=== PATIENT | female | born 1985 | race Caucasian/White ===

== ENCOUNTER 2016-07-22 15:31 | Emergency (ER) | payer SELFPAY ==
[~2016-07-22] VITALS: Ht 162.6 cm; Wt 86.2 kg
[~2016-07-22 15:31] MED LIST: CITA40TA12 PO; HYDR-971 PO; ONDA4TAB10 PO
--- NOTE | 2016-07-22 16:02 | RAD ---
Indication injury, pain. AP oblique and lateral views of the right hand were obtained. No prior imaging of the hand is available. There is deformity involving the mid shaft of the fifth metacarpal most consistent with an old healed fracture. An acute bony finding is not apparent. There is some soft tissue swelling over the ulnar side of the hand. IMPRESSION: No acute bony finding Deformity, having a chronic appearance, associated with the fifth metacarpal
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
[2016-07-22] MEDS ORDERED: HYDR-971 PO (16:23)
[2016-07-22 16:40] VITALS: BP 130/76
== END 2016-07-22 16:40 | disposition home or self-care (01) ==
LOC: ER 15:31
DX: S60.221A Contusion of right hand, initial encounter (principal); I10 Essential (primary) hypertension; F17.210 Nicotine dependence, cigarettes, uncomplicated; F12.10 Cannabis abuse, uncomplicated; F15.10 Other stimulant abuse, uncomplicated; Z88.6 Allergy status to analgesic agent; W22.8XXA Striking against or struck by other objects, initial encounter; Y93.89 Activity, other specified; Y99.8 Other external cause status; Y92.89 Other specified places as the place of occurrence of the external cause
CPT/HCPCS: 73130; 99284

== ENCOUNTER 2016-08-13 20:07 | Emergency (ER) | payer SELFPAY ==
[~2016-08-13] VITALS: Ht 162.6 cm; Wt 90.2 kg
[2016-08-13] MEDS ORDERED: QUET200T4 PO (20:30)
[2016-08-13] MEDS ORDERED: HYDR25TA9 PO (20:30)
[2016-08-13] MEDS ORDERED: PRAZ1CAP2 PO (20:30)
[2016-08-13] MEDS ORDERED: LISI10TA2 PO (20:30)
[2016-08-13] MEDS ORDERED: BUSP15TA PO (20:31)
[2016-08-13] MEDS ORDERED: MEDR150D3 IM (20:31)
[2016-08-13] MEDS ORDERED: IBUPROFEN 600 MG TABLET. PO ONE ×2 (20:46→21:00)
[2016-08-13] MEDS ORDERED: IBUP600T16 PO (21:10)
[2016-08-13] MEDS ORDERED: HYDR-2678 PO (21:10)
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
[2016-08-13 21:20] VITALS: BP 124/81
[2016-08-13] MEDS ORDERED: ACETAMINOPHEN/CODEINE 300/30MG 4TABLET STARTPACK. PO ONE (21:30)
--- NOTE | 2016-08-14 09:12 | RAD ---
Examination: 3 views of the right hand History: History of hand trauma Comparison: None available Findings: The alignment of the metacarpophalangeal joints, interphalangeal joint grossly appears unremarkable. Bony irregularity identified in the midshaft of the fifth metacarpal likely old injury. There is mild soft tissue swelling identified in the dorsum of the hand likely secondary to soft tissue injury. Impression: 1. No obvious acute fracture identified. Probable old fracture of the fifth metacarpal. 2. Mild soft tissue swelling identified in the dorsum of the hand likely secondary to soft tissue injury.
== END 2016-08-13 21:20 | disposition home or self-care (01) ==
LOC: ER 20:07
DX: S60.221A Contusion of right hand, initial encounter (principal); F17.210 Nicotine dependence, cigarettes, uncomplicated; I10 Essential (primary) hypertension; F12.10 Cannabis abuse, uncomplicated; Z88.6 Allergy status to analgesic agent; W20.8XXA Other cause of strike by thrown, projected or falling object, initial encounter; Y93.89 Activity, other specified; Y92.89 Other specified places as the place of occurrence of the external cause; Y99.8 Other external cause status
CPT/HCPCS: 73130; 99284

== ENCOUNTER 2016-08-26 13:03 | Emergency (ER) | payer SELFPAY ==
[~2016-08-26 13:03] MED LIST changes: +BUSP15TA PO; +HYDR-2678 PO; +HYDR25TA9 PO; +IBUP600T16 PO; +LISI10TA2 PO; +MEDR150D3 IM; +PRAZ1CAP2 PO; +QUET200T4 PO
[2016-08-26 13:49] LABS: AMPHETAMINE/METHAMPHETAMINE NEG (NEG); BARBITURATES NEG (NEG); BENZODIAZEPINES NEG (NEG); CANNABINOIDS POS (NEG); COCAINE NEG (NEG); METHADONE NEG (NEG); OPIATES NEG (NEG); PHENCYCLIDINE NEG (NEG)
[2016-08-26 13:58] LABS: BILIRUBIN,URINE NEG (NEG); CLARITY,URINE HAZY; COLOR,URINE AMBER; GLUCOSE,URINE NEG (NEG); NITRITE,URINE NEG (NEG); RBC,URINE 0 /HPF (0-2); UROBILINOGEN,URINE 0.2 mg/dL (0.2 mg/dL)
[2016-08-26 13:59] LABS: AMORPHOUS SEDIMENT,UR PRESENT /HPF; BACTERIA,URINE 0 /HPF (0-FEW); SQUAMOUS EPITHELIAL CELL,UR OCC /LPF; WBC,URINE 0 /HPF (0-4)
[2016-08-26 14:00] LABS: U PREG PATIENT NEGATIVE (NEG)
[2016-08-26] MEDS ORDERED: MORPHINE SULFATE 4 MG/ML DISP.SYRIN. IV/SQ PRN (14:15)
--- NOTE | 2016-08-26 14:17 | PHYS DOC ---
General Chief Complaint: FLANK PAIN Stated Complaint: BACK/RIB PAIN Time Seen by MD: 13:18 Source: patient Exam Limitations: no limitations Problems: History of Present Illness Initial Comments Pt is 31/F to ED c/o right flank pain. Pt states for past few days she's had left flank pain radiating anteriorly. No specific abdominal pain, no relation to PO, no n/v/d appetite remains intact. No trauma, sx described as crampy/dull, moderate, worse with certain movements better with rest. No travel/bad food, no other complaints. Timing/Duration: constant (few days) Severity: moderate Modifying Factors: worse with movement, improves with rest Associated Symptoms: other Allergies: Coded Allergies: tramadol (Verified Allergy, Severe, 08/13/16) "I GOT REALLY IRRITATED AND WENT PSYCHO." Past Medical History Medical History: hypertension, other (anxiety, bipolar, depression, HTN, seizure) Surgical History: noncontributory Social History Smoker: cigarettes Alcohol: occasionally Drugs: none Review of Systems Constitutional: denies chills, denies fever, denies malaise Respiratory: denies cough, denies shortness of breath Cardiovascular: denies chest pain, denies palpitations, denies syncope Gastrointestinal: abdominal pain, denies constipation, denies diarrhea, nausea , denies vomiting Genitourinary: denies dysuria, denies frequency, denies hematuria Musculoskeletal: see HPI, denies joint swelling, muscle pain, muscle stiffness , denies neck pain Psychiatric/Neurological: denies headache, denies numbness, denies paresthesia , denies weakness Physical Exam General Appearance: WD/WN, mild distress Eyes: bilateral eye normal inspection, bilateral eye PERRL, bilateral eye EOMI Ear, Nose, Throat: hearing grossly normal, normal ENT inspection, normal pharynx Neck: non-tender, supple Respiratory: normal breath sounds, no respiratory distress Cardiovascular: normal peripheral pulses, regular rate, rhythm Gastrointestinal: non tender, soft, other (equivocal lee, neg mcburney no r/ g/mass, BS nl) Back: no CVA tenderness, no vertebral tenderness Extremities: non-tender, normal inspection Neurologic/Psychiatric: mail courier II-XII nml as tested, no motor/sensory deficits, alert, normal mood/affect, oriented x 3, other (dtrs/strength/sensory equal/ intact b/l LE, neg SLR b/l) Skin: normal color, warm/dry Orders, Labs, Meds Labs/urine reviewed, unremarkable. UDS +cannabinoids Pt rechecked, feeling better with meds. She expressed agreement/understanding with treatment plan. Departure Time of Disposition: 14:56 Disposition: 01 HOME, SELF-CARE Diagnosis: low back strain, marijuana abuse Condition: GOOD Patient Instructions: Low Back Strain with Rehab-SportsMed, Marijuana Abuse- Brief Additional Instructions: Labs and urine were nonspecific, back pain complaints appear to be musculoskeletal in nature (muscle strain). Discontinue substance abuse. Activity as tolerated. Heating pad to affected area 20 minutes, 4-5 times daily followed by gentle stretching. Rx: tylenol w/codeine #10, skelaxin, naprosyn Take meds with food. Follow up with your doctor Tuesday for recheck. Return to ED with new or changing symptoms. JOSESITO CROOK DO August 26, 2016 14:17
[2016-08-26 14:23] LABS: BASO # 0.1 x10^3/uL (0.0-0.2); BASO % 1 % (0-3); EOS # 0.2 x10^3/uL (0.0-0.7); EOS % 2 % (0-3); HEMATOCRIT 40.1 % (36.0-47.0); HEMOGLOBIN 13.6 g/dL (12.0-15.5); LYMPH # 2.6 x10^3/uL (1.0-4.8); LYMPH % 29 % (24-48); MEAN CORPUSCULAR HEMOGLOBIN 29 pg (25-35); MEAN CORPUSCULAR HGB CONC 34 g/dL (31-37); MEAN CORPUSCULAR VOLUME 87 fL (79-100); MONO # 0.5 x10^3/uL (0.0-1.1); MONO % 5 % (0-9); NEUT # 5.8 x10^3uL (1.8-7.7); NEUT % 63 % (31-73); PLATELET COUNT 283 x10^3/uL (140-400); RED BLOOD COUNT 4.64 x10^6/uL (3.50-5.40); WHITE BLOOD COUNT 9.2 x10^3/uL (4.0-11.0)
[2016-08-26] MEDS ORDERED: IV NORMAL SALINE 1,000ML 1,000 ML IV SCH (14:30)
[2016-08-26] MEDS ORDERED: KETOROLAC 30 MG/ML VIAL. IV ONE (14:30)
[2016-08-26 14:39] LABS: ALBUMIN 3.8 g/dL (3.4-5.0); CALCIUM 9.1 mg/dL (8.5-10.1); CREATININE 0.8 mg/dL (0.6-1.0); GFR 83.7; POTASSIUM 3.6 mmol/L (3.5-5.1); TOTAL BILIRUBIN 0.6 mg/dL (0.2-1.0); TOTAL PROTEIN 7.6 g/dL (6.4-8.2)
[2016-08-26] MEDS ORDERED: ACET-704 PO (15:01)
[2016-08-26] MEDS ORDERED: META-21 PO (15:01)
[2016-08-26] MEDS ORDERED: NAPR500T PO (15:01)
[2016-08-26 15:15] VITALS: BP 124/77
== END 2016-08-26 15:15 | disposition home or self-care (01) ==
LOC: ER 13:03
DX: S39.012A Strain of muscle, fascia and tendon of lower back, initial encounter (principal); F12.10 Cannabis abuse, uncomplicated; F17.210 Nicotine dependence, cigarettes, uncomplicated; I10 Essential (primary) hypertension; F31.9 Bipolar disorder, unspecified; Z88.6 Allergy status to analgesic agent; X58.XXXA Exposure to other specified factors, initial encounter; Y93.89 Activity, other specified; Y99.8 Other external cause status; Y92.89 Other specified places as the place of occurrence of the external cause
CPT/HCPCS: 36415; 80053; 80305; 81001; 81025; 83690; 84703; 85027; 96361; 96374; 96375; 99284; J1885; J2270; G0481; J7030

== ENCOUNTER 2017-01-06 18:06 | Emergency (ER) | payer OTHER ==
[~2017-01-06] VITALS: Ht 162.6 cm; Wt 83.2 kg
[~2017-01-06 18:06] MED LIST changes: +ACET-704 PO; +META-21 PO; +NAPR500T PO
[2017-01-06 18:43] LABS: BASO % 0 % (0-3); EOS % 0 % (0-3); HEMATOCRIT 40.6 % (36.0-47.0); HEMOGLOBIN 13.7 g/dL (12.0-15.5); LYMPH # 1.5 x10^3/uL (1.0-4.8); LYMPH % 11 % (24-48); MEAN CORPUSCULAR HEMOGLOBIN 30 pg (25-35); MEAN CORPUSCULAR HGB CONC 34 g/dL (31-37); MEAN CORPUSCULAR VOLUME 89 fL (79-100); MONO # 0.4 x10^3/uL (0.0-1.1); MONO % 3 % (0-9); NEUT # 11.1 x10^3uL (1.8-7.7); NEUT % 85 % (31-73); PLATELET COUNT 254 x10^3/uL (140-400); RED BLOOD COUNT 4.55 x10^6/uL (3.50-5.40); RED CELL DISTRIBUTION WIDTH 14.3 % (11.5-14.5); WHITE BLOOD COUNT 13.1 x10^3/uL (4.0-11.0)
[2017-01-06 18:55] LABS: ACETAMIN < 2.0 mcg/mL (10-30); ETHANOL < 10 mg/dL (0-10); SALIC 5.5 mg/dL (2.8-20.0)
[2017-01-06 18:56] LABS: ALBUMIN 4.2 g/dL (3.4-5.0); CALCIUM 9.4 mg/dL (8.5-10.1); CREATININE 0.9 mg/dL (0.6-1.0); DIRECT BILIRUBIN 0.1 mg/dL (0.0-0.2); POTASSIUM 3.2 mmol/L (3.5-5.1); TOTAL BILIRUBIN 0.5 mg/dL (0.2-1.0); TOTAL PROTEIN 7.4 g/dL (6.4-8.2)
--- NOTE | 2017-01-06 18:58 | EKG ---
[address] [address] Test Date: 2017-01-06 Test Time: 18:34:31 Pat Name: VEE NOBLES Department: Room: Gender: F Manager Environmental Health [employer] Safety: : 1985 Requested By: JULIANE PAGAN Order Number: [id number] Reading MD: Measurements Intervals Jones Rate: 81 P: 38 HI: 148 QRS: 15 QRSD: 84 T: 8 QT: 390 QTc: 459 Interpretive Statements SINUS RHYTHM NORMAL ECG RI6.01 No previous ECG available for comparison
[2017-01-06 19:37] LABS: AMPHETAMINE/METHAMPHETAMINE POS (NEG); BARBITURATES NEG (NEG); BENZODIAZEPINES NEG (NEG); CANNABINOIDS NEG (NEG); COCAINE NEG (NEG); METHADONE NEG (NEG); OPIATES POS (NEG); PHENCYCLIDINE NEG (NEG)
[2017-01-06 23:10] VITALS: BP 125/65
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
== END 2017-01-06 23:57 | disposition home or self-care (01) ==
LOC: EEVIPCON 18:06 → ER 18:06
DX: T50.992A Poisoning by other drugs, medicaments and biological substances, intentional self-harm, initial encounter (principal); F32.9 Major depressive disorder, single episode, unspecified; F41.9 Anxiety disorder, unspecified; I10 Essential (primary) hypertension; F17.210 Nicotine dependence, cigarettes, uncomplicated; F12.10 Cannabis abuse, uncomplicated; Z88.6 Allergy status to analgesic agent; Z88.8 Allergy status to other drugs, medicaments and biological substances; Y92.89 Other specified places as the place of occurrence of the external cause
CPT/HCPCS: 36415; 80048; 80076; 80307; 81025; 85025; 85610; 85730; 93005; 99285; G0480; G0479

== ENCOUNTER 2017-03-14 09:41 | Emergency (ER) | payer OTHER ==
[~2017-03-14] VITALS: Ht 162.6 cm; Wt 83.2 kg
[~2017-03-14 09:41] MED LIST changes: +NAPR-683 PO; -NAPR500T PO
[2017-03-14] MEDS ORDERED: KETOROLAC 60 MG/2 ML VIAL. IM ONE (10:15)
--- NOTE | 2017-03-14 10:27 | PHYS DOC ---
Past History Past Medical History: Anxiety, Bipolar, Depression, Hypertension, Seizure Past Surgical History: Other Smoking: Cigarettes, Less than 1pk/day Alcohol Use: None Drug Use: Marijuana Adult General Chief Complaint Chief Complaint: BACK PAIN OR INJURY HPI [facility] 31[facility] of [facility] disorder and chronic back pain complaining of increasing chronic back pain for the last 4 weeks that gradually getting worse. Patient states the pain is constant and sharp and aching and throbbing and getting worse with activity and movement. Patient stated the pain radiated to back of her thighs. Patient denies fever and chills , new injury, lower extremity weakness or numbness, urinary and bowel incontinence. Patient states she took [id number] medication without improvement of her pain. Review of Systems Review of Systems Constitutional: Denies fever or chills [] Eyes: Denies change in visual acuity, redness, or eye pain [] HENT: Denies nasal congestion or sore throat [] Respiratory: Denies cough or shortness of breath [] Cardiovascular: No additional information not addressed in HPI [] GI: Denies abdominal pain, nausea, vomiting, bloody stools or diarrhea [] : Denies dysuria or hematuria [] Musculoskeletal: Denies joint pain, reports back pain [] Integument: Denies rash or skin lesions [] Neurologic: Denies headache, focal weakness or sensory changes [] Endocrine: Denies polyuria or polydipsia [] All other systems were reviewed and found to be within normal limits, except as documented in this note. Current Medications Current Medications Current Medications Medications (Trade) Dose Ordered [facility] Start Time Stop Time Status Last Admin Dose Admin Ketorolac Tromethamine (Toradol) 60 mg 1X ONCE 03/14/17 10:15 03/14/17 10:17 DC Allergies Allergies Allergies Coded Allergies Type Severity Reaction Last Updated Verified tramadol Allergy Severe 08/13/16 Yes lamotrigine Allergy Unknown 01/06/17 Yes nitrofurantoin Allergy Unknown 01/06/17 Yes Physical Exam Physical Exam Constitutional: Well nourished, mild distress, non-toxic appearance, anxious. [] HENT: Normocephalic, atraumatic, bilateral external ears normal, oropharynx moist, no oral exudates, nose normal. [] Eyes: PERRLA, EOMI, conjunctiva normal, no discharge. [] Neck: Normal range of motion, no tenderness, supple, no stridor. [] Cardiovascular:Heart rate regular rhythm, no murmur [] Lungs & Thorax: Bilateral breath sounds clear to auscultation [] Abdomen: Bowel sounds normal, soft, no tenderness, no masses, no pulsatile masses. [] Skin: Warm, dry, no erythema, no rash. [] Back: No tenderness, no CVA tenderness, no midline tenderness, limited range of motion of the lumbar spine. [] Extremities: No tenderness, no cyanosis, no clubbing, ROM intact, no edema. [] Neurologic: Alert and oriented X 3, normal motor function, normal sensory function, no focal deficits noted. [] Psychologic: Judgement normal, anxious EKG EKG [] Radiology/Procedures Radiology/Procedures [] Course & Med Decision Making Course & Med Decision Making Pertinent Labs and Imaging studies reviewed. (See chart for details) Evaluation of patient in ER showed 34-year-old male patient with history of chronic back pain presented to ER with increasing back pain for the last 4 weeks. Patient had unremarkable physical exam except for anxiety. X-ray showed spondylolisthesis without acute finding. UA and hCG was unremarkable. Plan to discharge patient home with prescription of Flexeril and Percogesic and instruction to apply ice on her back and follow with her primary care physician for chronic back pain. [] Dragon Disclaimer Dragon Disclaimer This electronic medical record was generated, in whole or in part, using a voice recognition dictation system. Departure Departure: Impression: Primary Impression: Acute exacerbation of chronic low back pain Additional Impressions: Tobacco abuse History of bipolar disorder Disposition: 01 HOME, SELF-CARE (At 1101) Condition: IMPROVED Referrals: HAZEL AVENDANO- (PCP) Patient Instructions: Back Pain in Additional Instructions: Apply ice on your back Follow-up with your primary care physician in 2-4 days for chronic back pain evaluation Scripts [Percogesic] No Conflict Check 1 TAB BID Y for PAIN, #14 Prov: LUCIO YUSUF MD 03/14/17 Cyclobenzaprine Hcl (CYCLOBENZAPRINE HCL) 10 Mg Tablet 1 TAB PO QHS, #30 TAB Prov: LUCIO YUSUF MD 03/14/17 Problem Qualifiers LUCIO YUSUF MD Mar 14, 2017 10:27
--- NOTE | 2017-03-14 10:33 | RAD ---
Indication: Back pain for 2 months. No known injury. Falls. Technique: 3 views of the lumbosacral spine are submitted for review. No comparison is available. Findings: There is 12 mm of anterolisthesis at L5-S1, appears to be secondary to bilateral L5 pars defects. 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 There is no fracture. Vertebral body height is maintained. There is no additional malalignment. There is no osseous lesion. Impression: 1. Negative for fracture or traumatic dislocation. 2. Spondylolisthesis at L5-S1 secondary to bilateral L5 pars defects.
[2017-03-14 10:34] LABS: AMORPHOUS SEDIMENT,UR PRESENT /HPF; BACTERIA,URINE FEW /HPF (0-FEW); BILIRUBIN,URINE NEG (NEG); CLARITY,URINE CLOUDY; COLOR,URINE AMBER; GLUCOSE,URINE NEG (NEG); HYALINE CASTS, URINE OCC /HPF; NITRITE,URINE NEG (NEG); RBC,URINE RARE /HPF (0-2); SQUAMOUS EPITHELIAL CELL,UR MOD /LPF; UROBILINOGEN,URINE 0.2 mg/dL (0.2 mg/dL); WBC,URINE OCC /HPF (0-4)
[2017-03-14 10:35] LABS: U PREG PATIENT NEGATIVE (NEG)
[2017-03-14] MEDS ORDERED: CYCL-331 PO (11:04)
[2017-03-14] MEDS ORDERED: Percogesic (11:04)
[2017-03-14 11:11] VITALS: BP 116/75
== END 2017-03-14 11:11 | disposition home or self-care (01) ==
LOC: ER 09:41
DX: G89.29 Other chronic pain (principal); M54.5 Low back pain; F31.9 Bipolar disorder, unspecified; F41.9 Anxiety disorder, unspecified; I10 Essential (primary) hypertension; F17.210 Nicotine dependence, cigarettes, uncomplicated; F12.10 Cannabis abuse, uncomplicated; Z88.6 Allergy status to analgesic agent; Z88.8 Allergy status to other drugs, medicaments and biological substances
CPT/HCPCS: 72100; 81001; 81025; 96372; 99285; J1885

== ENCOUNTER 2017-07-20 15:47 | Emergency (ER) | payer OTHER ==
[~2017-07-20] VITALS: Ht 162.6 cm; Wt 72.6 kg
[2017-07-20 15:47] VITALS: BP 128/61
[~2017-07-20 15:47] MED LIST changes: +CYCL-331 PO; +Percogesic
--- NOTE | 2017-07-22 06:32 | ED.ADGEN ---
Past History Past Medical History: Anxiety, Arthritis, Bipolar, Depression, Hypertension, Seizure, Other Past Surgical History: Other Smoking: Cigarettes, Less than 1pk/day Alcohol Use: Occasionally Drug Use: Marijuana Adult General Chief Complaint Chief Complaint Post extraction, dental socket pain. HPI HPI Patient is a 32-year-old female presents with right posterior premolar post extraction socket pain. Tooth was extracted 4 days ago by local dentist. Patient contacted the dental office and cannot be seen and told to 4 morning. She is taking Tylenol and ibuprofen without relief. No trismus dysphonia, drooling or hoarseness. No other symptoms or complaints.[] Review of Systems Review of Systems Review symptoms as per history of present illness. [] All other systems were reviewed and found to be within normal limits, except as documented in this note. Allergies Allergies Allergies Coded Allergies Type Severity Reaction Last Updated Verified tramadol Allergy Severe 08/13/16 Yes lamotrigine Allergy Unknown 01/06/17 Yes nitrofurantoin Allergy Unknown 01/06/17 Yes Physical Exam Physical Exam Constitutional: Well developed, well nourished, no acute distress, non-toxic appearance. [] HENT: Normocephalic, atraumatic, bilateral external ears normal, oropharynx moist, right posterior premolar socket, no clot, no surrounding erythema swelling. [] Eyes: PERRLA, EOMI, conjunctiva normal, no discharge. [] Neck: Normal range of motion, no tenderness, supple, no stridor. [] Lungs & Thorax: Bilateral breath sounds clear to auscultation [] Current Patient Data Vital Signs Vital Signs Date Time Temp Pulse Resp B/P (MAP) Pulse Ox O2 Delivery O2 Flow Rate FiO2 07/20/17 15:47 97.0 81 18 100 Room Air EKG EKG [] Radiology/Procedures Radiology/Procedures [] Course & Med Decision Making Course & Med Decision Making Pertinent Labs and Imaging studies reviewed. (See chart for details) [Abx rx'd. confirms dental appointment tomorrow..] Final Impression Final Impression [1. Post tooth extraction socket pain] Problems: Dragon Disclaimer Dragon Disclaimer This electronic medical record was generated, in whole or in part, using a voice recognition dictation system. JULISSA YEAGER DO Jul 22, 2017 06:32
== END 2017-07-20 16:15 | disposition home or self-care (01) ==
LOC: ER 15:47
DX: G89.18 Other acute postprocedural pain (principal); K08.89 Other specified disorders of teeth and supporting structures; M19.90 Unspecified osteoarthritis, unspecified site; F41.9 Anxiety disorder, unspecified; F31.9 Bipolar disorder, unspecified; I10 Essential (primary) hypertension; F17.210 Nicotine dependence, cigarettes, uncomplicated; F12.10 Cannabis abuse, uncomplicated; Z88.6 Allergy status to analgesic agent; Z88.8 Allergy status to other drugs, medicaments and biological substances
CPT/HCPCS: 99283

== ENCOUNTER 2018-05-11 17:28 | Emergency (ER) | payer SELFPAY ==
[~2018-05-11] VITALS: Ht 162.6 cm; Wt 67.1 kg
[~2018-05-11 17:28] MED LIST changes: +HYDR-2145 PO; +HYDR-3165 PO; -HYDR-971 PO; -HYDR25TA9 PO
[2018-05-11 18:31] LABS: AMPHETAMINE/METHAMPHETAMINE POS (NEG); BARBITURATES NEG (NEG); BENZODIAZEPINES NEG (NEG); CANNABINOIDS POS (NEG); COCAINE NEG (NEG); METHADONE NEG (NEG); OPIATES NEG (NEG); PHENCYCLIDINE NEG (NEG)
[2018-05-11 18:37] LABS: BACTERIA,URINE 0 /HPF (0-FEW); BILIRUBIN,URINE NEG (NEG); CLARITY,URINE CLEAR; COLOR,URINE YELLOW; GLUCOSE,URINE NEG (NEG); NITRITE,URINE NEG (NEG); RBC,URINE RARE /HPF (0-2); SQUAMOUS EPITHELIAL CELL,UR OCC /LPF; UROBILINOGEN,URINE 0.2 mg/dL (0.2 mg/dL)
--- NOTE | 2018-05-11 18:51 | PHYS DOC ---
Past History Past Medical History: Anxiety, Arthritis, Bipolar, Depression, Hypertension, Seizure, Other Additional Past Surgical Histo: [place] Teeth Smoking: Cigarettes, Less than 1pk/day Alcohol Use: Occasionally Drug Use: Marijuana Adult General Chief Complaint Chief Complaint: ALTERED MENTAL STATUS HPI HPI 32-year-old female presenting with report of feeling unwell and acting "funny" after accidentally hitting the top of her head on a low hanging ceiling approximately 1.5 hours prior to arrival. Reports she felt very dazed and confused. Denies LOC. Denies neck pain. Denies use of blood thinners. Friend reports she was hyperventilating and crying one minute then fine the next. Denies nausea or vomiting. Patient denies . Reports prior history of "serious" concussion. Reports she feels "drunk". Denies ETOH use or drug use today. Review of Systems Review of Systems Constitutional: Denies fever or chills [] Eyes: Denies change in visual acuity, redness, or eye pain [] HENT: Denies nasal congestion or epistaxis [] Respiratory: Denies cough or shortness of breath [] Cardiovascular: Denies chest pain or palpitations GI: Denies abdominal pain, nausea, vomiting, or diarrhea [] : Denies dysuria or hematuria or Musculoskeletal: Denies back pain or joint pain [] Integument: Denies laceration; reports scalp contusion Neurologic: Reports headache; denies focal weakness or sensory changes [] Complete systems were reviewed and found to be within normal limits, except as documented in this note. Allergies Allergies Allergies Coded Allergies Type Severity Reaction Last Updated Verified tramadol Allergy Severe 08/13/16 Yes lamotrigine Allergy Unknown 01/06/17 Yes nitrofurantoin Allergy Unknown 01/06/17 Yes Physical Exam Physical Exam Constitutional: Well developed, well nourished, anxious HENT: Normocephalic, atraumatic, bilateral TMs normal, oropharynx moist, nose normal Eyes: PERRL, EOMI, conjunctiva normal, no nystagmus] Neck: Normal range of motion, no tenderness, supple, no meningeal signs Cardiovascular: Heart rate regular rhythm, no murmur [] Lungs & Thorax: Bilateral breath sounds clear to auscultation [] Abdomen: Soft, no tenderness, no masses, no pulsatile masses. [] Skin: Warm, dry, no erythema, small contusion noted to top of scalp, no ecchymosis noted Back: No tenderness, no CVA tenderness. [] Extremities: No tenderness, ROM intact, no edema. [] Neurologic: Alert and oriented X 3, sensation intact, motor intact, no focal deficits noted. [] Psychologic: Affect anxious, judgement normal Current Patient Data Vital Signs Vital Signs Date Time Temp Pulse Resp B/P (MAP) Pulse Ox O2 Delivery O2 Flow Rate FiO2 05/11/18 17:28 97.7 86 18 99 Room Air Lab Results Laboratory Tests Test 05/11/18 18:02 Urine Collection Type U cath Urine Color Yellow Urine Clarity Clear Urine pH 8.5 Urine Specific [place] 1.015 Urine Protein Neg (NEG-TRACE) Urine Glucose (UA) Neg mg/dL (NEG) Urine Ketones (Stick) Neg mg/dL (NEG) Urine Blood Neg (NEG) Urine Nitrite Neg (NEG) Urine Bilirubin Neg (NEG) Urine Urobilinogen Dipstick 0.2 mg/dL (0.2 mg/dL) Urine Leukocyte Esterase Trace (NEG) Urine RBC Rare /HPF (0-2) Urine WBC 1-4 /HPF (0-4) Urine Squamous Epithelial Cells Occ /LPF Urine Transitional Epithelial Cells Occ /LPF Urine Bacteria 0 /HPF (0-FEW) Urine Mucus Slight /LPF Urine Opiates Screen Neg (NEG) Urine Methadone Screen Neg (NEG) Urine Barbiturates Neg (NEG) Urine Phencyclidine Screen Neg (NEG) Urine Amphetamine/Methamphetamine Pos (NEG) Urine Benzodiazepines Screen Neg (NEG) Urine Cocaine Screen Neg (NEG) Urine Cannabinoids Screen Pos (NEG) Urine Ethyl Alcohol Neg (NEG) EKG EKG [] Radiology/Procedures Radiology/Procedures PROCEDURE: CT HEAD WO CONTRAST CT brain without contrast. HISTORY: Altered mental status CT scan of brain was done without contrast. Sinuses are clear. Ventricles are normal in size. There is no intracranial hemorrhage or subdural hematoma. There is no mass or shift of the midline. An acute CVA is not identified. IMPRESSION: 1. No intracranial hemorrhage or acute finding noted. PQRS Compliance Statement: One or more of the following individualized dose reduction techniques were utilized for this examination: 1. Automated exposure control 2. Adjustment of the mA and/or kV according to patient size 3. Use of iterative reconstruction technique Electronically signed by: Matthew Robertson MD (05/11/2018 6:45 PM) [facility] Course & Med Decision Making Course & Med Decision Making Pertinent Labs and Imaging studies reviewed. (See chart for details) Patient presents with history of head contusion with subsequent change in her normal behavior. Hx of prior concussion. Patient currently neurologically intact. Appears anxious. Denies drug use except for THC but reports not today. Denies ETOH. CT head without acute process. UDS positive for THC and meth. Patient reports interval improvement of symptoms. Symptoms likely concussive in nature. Patient stable for discharge with outpatient follow-up with PCP. Discussed findings and plan with patient and friend, who acknowledge understanding and agreement. Dragon Disclaimer Dragon Disclaimer This electronic medical record was generated, in whole or in part, using a voice recognition dictation system. Departure Departure: Impression: Primary Impression: Concussion Additional Impression: Methamphetamine abuse Disposition: 01 HOME, SELF-CARE Condition: STABLE Referrals: PCP,NO (PCP) Patient Instructions: Concussion and Brain Injury, [id number], Methamphetamine Abuse, Complications Additional Instructions: Use over the counter Tylenol and Ibuprofen for pain Problem Qualifiers Primary Impression: Concussion Encounter type: initial encounter Loss of consciousness presence/duration: without LOC Qualified Codes: S06.0X0A - Concussion without loss of consciousness, initial encounter YAZAN SNIDER DO May 11, 2018 18:51
[2018-05-11 19:10] VITALS: BP 152/101
== END 2018-05-11 19:07 | disposition home or self-care (01) ==
LOC: ER 17:28
DX: S06.0X0A Concussion without loss of consciousness, initial encounter (principal); F15.10 Other stimulant abuse, uncomplicated; R41.82 Altered mental status, unspecified; F41.9 Anxiety disorder, unspecified; M19.90 Unspecified osteoarthritis, unspecified site; I10 Essential (primary) hypertension; F31.9 Bipolar disorder, unspecified; F17.210 Nicotine dependence, cigarettes, uncomplicated; Z88.6 Allergy status to analgesic agent; Z88.8 Allergy status to other drugs, medicaments and biological substances; W22.01XA Walked into wall, initial encounter; Y93.89 Activity, other specified; Y92.89 Other specified places as the place of occurrence of the external cause; Y99.8 Other external cause status
CPT/HCPCS: 36415; 70450; 80307; 81001; 81025; 99284-25

== ENCOUNTER 2019-11-27 17:22 | Emergency (ER) | payer SELFPAY ==
[~2019-11-27] VITALS: Ht 160 cm; Wt 75.8 kg
[2019-11-27 17:25] VITALS: BP 146/80
[2019-11-27 18:43] LABS: BILIRUBIN,URINE NEG (NEG); CLARITY,URINE CLEAR; COLOR,URINE STRAW; GLUCOSE,URINE NEG (NEG)
[2019-11-27 18:44] LABS: BACTERIA,URINE 0 /HPF (0-FEW); NITRITE,URINE NEG (NEG); RBC,URINE OCC /HPF (0-2); SQUAMOUS EPITHELIAL CELL,UR OCC /LPF; UROBILINOGEN,URINE 0.2 mg/dL (0.2 mg/dL); WBC,URINE OCC /HPF (0-4)
--- NOTE | 2019-11-27 18:47 | RAD ---
OB <14 WKS W/TV History: Lower abdominal pain Comparison: None. Findings: Multiple transabdominal sonographic images of pelvis are submitted. Uterus measured 10.4 x 6.3 x 7.8 cm. There is a single intrauterine gestational sac with identifiable pole. Amniotic fluid is within normal limits. Gestational sac morphology is within normal limits. Transvaginal ultrasound: Multiple transvaginal sonographic images of the pelvis are submitted. Closed cervix measured 4.3 cm in length. There is a intrauterine gestational sac with visible yolk sac and single identifiable pole. Within the overall confines of the gestational sac, there is round area of peripheral thin echogenicity which contains the pole, adjacent area of somewhat different echogenicity. There is demonstrable cardiac activity 192 bpm. Mean sac dimension of 3.58 cm corresponds with 8 weeks 6 days. [place]-rump length measurement of 2.02 cm corresponds with 8 weeks 4 days. Adjusted ultrasound age is 8 weeks 5 days with estimated delivery date of 07/03/2020. LMP age 7 weeks 0 days with estimated delivery date of 07/15/2020. Left ovary measured 1.8 x 2.4 x 2.6 cm. Right ovary measured 2.2 x 2.2 x 1.5 cm. There is normal color flow of the bilateral ovaries. No significant free fluid is demonstrated. Impression: 1. There is a single viable intrauterine fetus, demonstrable cardiac activity. Adjusted ultrasound age is 8 weeks 5 days with estimated delivery date of 07/03/2020. There is area of somewhat different echogenicity in the gestational sac considered nonspecific as there is no other visible pole. Electronically signed by: Vikash Pelletier MD (11/27/2019 6:44 PM) [facility]
--- NOTE | 2019-11-27 18:54 | PHYS DOC ---
Past History Past Medical History: Anxiety, Arthritis, Bipolar, Depression, Hypertension, Seizure, Other Past Surgical History: Other Additional Past Surgical Histo: [place] Teeth Smoking: Cigarettes, Less than 1pk/day Alcohol Use: None Drug Use: Marijuana Adult General Chief Complaint Chief Complaint: ABDOMINAL PAIN [facility] HPI Patient is a 34-year-old female who presents for abdominal pain. Patient reports being , reports having numerous home tests and reports being " less than 2 months " per her last menstrual period. She has not followed up with outpatient [employer] [employer]. Patient reports abdominal pain that started earlier today without any known inciting event or trauma. Nothing known makes better, she has not taken anything in attempt to alleviate pain. Nothing known makes worse. Patient admits bilateral lower quadrant and suprapubic pressure and tenderness to palpation. Given recent test and fact that she has not been seen by [facility] [employer] provider, patient was concerned prompting her to visit our ER today. Of note, patient does not have a history of any [employer] abnormalities such as ovarian torsion or cysts, she has no prior history of ectopic pregnancies, denies recent fever, no URI-like symptoms, no chest pain, no shortness of breath, no dysuria, no vaginal bleeding or discharge Review of Systems Review of Systems Fourteen body systems of review of systems have been reviewed. See HPI for pertinent positives and negative responses, other rivas all other systems are negative, non-pertinent or non-contributory Allergies Allergies Allergies Coded Allergies Type Severity Reaction Last Updated Verified tramadol Allergy Severe 08/13/16 Yes lamotrigine Allergy Unknown 01/06/17 Yes nitrofurantoin Allergy Unknown 01/06/17 Yes Physical Exam Physical Exam Constitutional: Well developed, well nourished, no acute distress, non-toxic appearance. HENT: Normocephalic, atraumatic, bilateral external ears normal, oropharynx moist, no oral exudates, nose normal. Eyes: PERRLA, EOMI, conjunctiva normal, no discharge. Neck: Normal range of motion, no tenderness, supple, no stridor. Cardiovascular: Heart rate regular, sinus rhythm, no murmurs rubs or gallops Lungs & Thorax: Bilateral breath sounds clear to auscultation Abdomen: Bowel sounds normal, soft, minimally tender to palpation of bilateral lower quadrants and suprapubic area, no guarding, no rebound, no masses, no pulsatile masses. Nonsurgical abdomen, no peritoneal signs Skin: Warm, dry, no erythema, no rash. Back: No tenderness, no CVA tenderness. Extremities: No tenderness, no cyanosis, no clubbing, ROM intact, no edema. Neurologic: Alert and oriented X 3, grossly normal motor & sensory function, no focal deficits noted. Psychologic: Affect normal, judgement normal, mood normal. Current Patient Data Vital Signs Vital Signs Date Time Temp Pulse Resp B/P (MAP) Pulse Ox O2 Delivery O2 Flow Rate FiO2 11/27/19 17:25 98.5 86 18 146/80 (102) 100 Room Air Lab Results Laboratory Tests Test 11/27/19 18:12 Urine Collection Type Unknown Urine Color Straw Urine Clarity Clear Urine pH 6.0 Urine Specific [place] 1.010 Urine Protein Neg (NEG-TRACE) Urine Glucose (UA) Neg mg/dL (NEG) Urine Ketones (Stick) Neg mg/dL (NEG) Urine Blood Neg (NEG) Urine Nitrite Neg (NEG) Urine Bilirubin Neg (NEG) Urine Urobilinogen Dipstick 0.2 mg/dL (0.2 mg/dL) Urine Leukocyte Esterase Neg (NEG) Urine RBC Occ /HPF (0-2) Urine WBC Occ /HPF (0-4) Urine Squamous Epithelial Cells Occ /LPF Urine Bacteria 0 /HPF (0-FEW) EKG EKG [] Radiology/Procedures Radiology/Procedures PROCEDURE: OB <14 WKS W/TV OB <14 WKS W/TV History: Lower abdominal pain Comparison: None. Findings: Multiple transabdominal sonographic images of pelvis are submitted. Uterus measured 10.4 x 6.3 x 7.8 cm. There is a single intrauterine gestational sac with identifiable pole. Amniotic fluid is within normal limits. Gestational sac morphology is within normal limits. Transvaginal ultrasound: Multiple transvaginal sonographic images of the pelvis are submitted. Closed cervix measured 4.3 cm in length. There is a intrauterine gestational sac with visible yolk sac and single identifiable pole. Within the overall confines of the gestational sac, there is round area of peripheral thin echogenicity which contains the pole, adjacent area of somewhat different echogenicity. There is demonstrable cardiac activity 192 bpm. Mean sac dimension of 3.58 cm corresponds with 8 weeks 6 days. [place]-rump length measurement of 2.02 cm corresponds with 8 weeks 4 days. Adjusted ultrasound age is 8 weeks 5 days with estimated delivery date of 07/03/2020. LMP age 7 weeks 0 days with estimated delivery date of 07/15/2020. Left ovary measured 1.8 x 2.4 x 2.6 cm. Right ovary measured 2.2 x 2.2 x 1.5 cm. There is normal color flow of the bilateral ovaries. No significant free fluid is demonstrated. Impression: 1. There is a single viable intrauterine fetus, demonstrable cardiac activity. Adjusted ultrasound age is 8 weeks 5 days with estimated delivery date of 07/03/2020. There is area of somewhat different echogenicity in the gestational sac considered nonspecific as there is no other visible pole. Electronically signed by: Vikash Pelletier MD (11/27/2019 6:44 PM) [facility] Course & Med Decision Making Course & Med Decision Making Well-appearing ambulatory patient seen on arrival ABCs grossly unremarkable Comprehensive history and physical exam obtained, pertinent diagnostic studies ordered Patient's abdominal pain self resolved throughout entirety of visit without any ER intervention Discussed non-concerning ultrasound findings and no findings indicative of urinary tract infection Discussed this may be in acute presentation of more serious process Given that patient is remained asymptomatic throughout her ER visit and findings above and afebrile well-appearing patient, I feel patient is safe for discharge home with close PCP and [facility] [employer] follow-up Patient educated on supportive care, safe medications to take for as needed conditions during , and importance of establishing with local [facility] for further outpatient care Strict return precautions discussed at length with good understanding by patient, all questions and concerns addressed prior to ER departure home in stable condition Dragkaryn Disclaimer Dragon Disclaimer This electronic medical record was generated, in whole or in part, using a voice recognition dictation system. Departure Departure: Impression: Primary Impression: Abdominal pain during in first trimester Disposition: 01 HOME/RESIDENCE PRIOR TO ADM Condition: STABLE Referrals: PCP,HARSHA (PCP) Patient Instructions: ABCs of , Abdominal Pain During , [id number] Additional Instructions: You have been evaluated in the Emergency Department today for abdominal pain. Your evaluation was not suggestive of any emergent condition requiring medical i ntervention at this time. However, some abdominal problems make take more time to appear. Therefore, it is important for you to watch for any new symptoms or worsening of your current condition. As discussed prior to ER departure, please follow-up with your primary care physician and future [employer] [employer] for close outpatient follow-up Return to the Emergency Department if you experience worsening pain, persistent fevers greater than 100.4, recurrent vomiting, blood in vomit, blood in stool, dark tarry stool, chest pain, difficulty breathing, or any other concerning symptoms. Justification of Admission: Justification of Admission: Justification of Admission Dx: N/A FOX ROCHA DO Nov 27, 2019 18:54
== END 2019-11-27 19:05 | disposition home or self-care (01) ==
LOC: ER 17:22
DX: O26.891 Other specified pregnancy related conditions, first trimester (principal); R10.31 Right lower quadrant pain; R10.32 Left lower quadrant pain; O16.1 Unspecified maternal hypertension, first trimester; O99.331 Smoking (tobacco) complicating pregnancy, first trimester; Z88.6 Allergy status to analgesic agent; Z88.8 Allergy status to other drugs, medicaments and biological substances; Z3A.08 8 weeks gestation of pregnancy
CPT/HCPCS: 76801; 76817; 81001; 99284

== ENCOUNTER 2020-02-19 08:39 | Emergency (ER) | payer OTHER ==
[~2020-02-19] VITALS: Ht 160 cm; Wt 86.0 kg
--- NOTE | 2020-02-19 09:16 | PHYS DOC ---
Past History Past Medical History: Anxiety, Arthritis, Bipolar, Depression, Hypertension, Seizure, Other Past Surgical History: Other Additional Past Surgical Histo: [place] Teeth Smoking: Cigarettes, Less than 1pk/day Alcohol Use: None Drug Use: Marijuana General Adult EDM: Chief Complaint: ABDOMINAL PAIN IN HPI: HPI: Patient is a 34-year-old female who presents with a chief complaint of vaginal bleeding. Patient is 20 weeks 5 days and began having slightly heavier than spotting vaginal bleeding last night and this morning although when she just went to the bathroom she did notice any blood. Patient denies any sexual intercourse or vaginal trauma. Patient had some right lower quadrant cramping earlier that has since resolved. Pain in the right lower quadrant is nonradiating and mildly worse with palpation. Patient denies any recent illnesses. web interface developer is Dr. Brooks Review of Systems: Review of Systems: Constitutional: Denies fever or chills Eyes: Denies change in visual acuity HENT: Denies nasal congestion or sore throat Respiratory: Denies cough or shortness of breath Cardiovascular: Denies chest pain or edema GI: Denies abdominal pain, nausea, vomiting, bloody stools or diarrhea : Denies dysuria Musculoskeletal: Denies back pain or joint pain Integument: Denies rash Neurologic: Denies headache, focal weakness or sensory changes Endocrine: Denies polyuria or polydipsia Lymphatic: Denies swollen glands Psychiatric: Denies depression or anxiety Current Medications: Current Meds: Active Scripts Active [Percogesic] 1 Tab BID PRN Cyclobenzaprine Hcl 10 Mg Tablet 1 Tab PO QHS Naprosyn (Naproxen) 500 Mg Tablet 1 Tab PO BID Skelaxin (Metaxalone) 800 Mg Tablet 1 Tab PO TID Tylenol With Codeine #3 Tablet (Acetaminophen With Codeine) 1 Each Tablet 1 Tab PO Q6HRS Lortab 5-325 mg Tablet (Hydrocodone/Acetaminophen) 1 Each Tablet 1 Tab PO PRN Q6HRS PRN Ibuprofen 600 Mg Tablet 600 Mg PO QID PRN Reported Depo-Provera (Medroxyprogesterone Acetate) 150 Mg/1 Ml Disp.syrin 150 Mg IM [id number] Buspirone Hcl 15 Mg Tablet 15 Mg PO BID Prazosin Hcl 1 Mg Capsule 1 Mg PO QHS Seroquel (Quetiapine Fumarate) 200 Mg Tablet 200 Mg PO QHS Hydrochlorothiazide Tablet (Hydrochlorothiazide) 25 Mg Tablet 25 Mg PO DAILY Lisinopril 10 Mg Tablet 10 Mg PO DAILY Allergies: Allergies: Allergies Coded Allergies Type Severity Reaction Last Updated Verified tramadol Allergy Severe 08/13/16 Yes lamotrigine Allergy Unknown 01/06/17 Yes nitrofurantoin Allergy Unknown 01/06/17 Yes Physical Exam: PE: Constitutional: Well developed, well nourished, no acute distress, non-toxic appearance. [] HENT: Normocephalic, atraumatic, bilateral external ears normal, no trismus nose normal. [] Eyes: PERRLA, EOMI, conjunctiva normal, no discharge. [] Neck: Normal range of motion, no tenderness, supple, no stridor. [] Cardiovascular:Heart rate regular rhythm, peripheral pulses intact, cap refill is brisk Lungs & Thorax: Bilateral breath sounds clear, no respiratory distress Abdomen: Gravid uterus to the umbilicus without tenderness, no pulsatile masses exam: Quality Assurance Group Leader present, no vaginal bleeding, cervical os is closed, no cervical motion tenderness, external exam normal Skin: Warm, dry, no erythema, no rash. [] Back: No tenderness, no CVA tenderness. [] Extremities: No tenderness, no cyanosis, no clubbing, ROM intact, no edema. [] Neurologic: Alert and oriented X 3, normal motor function, normal sensory function, no focal deficits noted. [] Psychologic: Affect normal, judgement normal, mood normal. [] Current Patient Data: Labs: Laboratory Tests Test 02/19/20 09:10 02/19/20 09:18 Urine Collection Type Void Urine Color Yellow Urine Clarity Clear Urine pH 7.0 Urine Specific Mckenna 1.025 Urine Protein Neg Urine Glucose (UA) Neg mg/dL Urine Ketones (Stick) Neg mg/dL Urine Blood Neg Urine Nitrite Neg Urine Bilirubin Neg Urine Urobilinogen Dipstick 0.2 mg/dL Urine Leukocyte Esterase Neg Urine RBC 0 /HPF Urine WBC Occ /HPF Urine Squamous Epithelial Cells Few /LPF Urine Bacteria 0 /HPF Urine Mucus Slight /LPF White Blood Count 14.0 x10^3/uL Red Blood Count 4.29 x10^6/uL Hemoglobin 12.3 g/dL Hematocrit 38.2 % Mean Corpuscular Volume 89 fL Mean Corpuscular Hemoglobin 29 pg Mean Corpuscular Hemoglobin Concent 32 g/dL Red Cell Distribution Width 13.6 % Platelet Count 278 x10^3/uL Neutrophils (%) (Auto) 79 % Lymphocytes (%) (Auto) 15 % Monocytes (%) (Auto) 4 % Eosinophils (%) (Auto) 1 % Basophils (%) (Auto) 0 % Neutrophils # (Auto) 11.1 x10^3uL Lymphocytes # (Auto) 2.1 x10^3/uL Monocytes # (Auto) 0.6 x10^3/uL Eosinophils # (Auto) 0.2 x10^3/uL Basophils # (Auto) 0.0 x10^3/uL Maternal Serum HCG Beta Subunit 6397 mIU/mL Sodium Level 138 mmol/L Potassium Level 3.8 mmol/L Chloride Level 103 mmol/L Carbon Dioxide Level 24 mmol/L Anion Gap 11 Blood Urea Nitrogen 11 mg/dL Creatinine 0.6 mg/dL Estimated GFR (Cockcroft-Gault) 114.4 BUN/Creatinine Ratio 18 Glucose Level 93 mg/dL Calcium Level 8.6 mg/dL Total Bilirubin 0.2 mg/dL Aspartate Amino Transf (AST/SGOT) 10 U/L Alanine Aminotransferase (ALT/SGPT) 14 U/L Alkaline Phosphatase 72 U/L Total Protein 6.7 g/dL Albumin 2.8 g/dL Albumin/Globulin Ratio 0.7 Vital Signs: Vital Signs Date Time Temp Pulse Resp B/P (MAP) Pulse Ox O2 Delivery O2 Flow Rate FiO2 02/19/20 09:09 97.9 84 16 123/76 (92) 98 Room Air EKG: EKG: [] Radiology/Procedures: Radiology/Procedures: [][address] [address] IMAGING REPORT Signed PATIENT: VEE NOBLES ACCOUNT: [id number] : 1985 LOCATION: ER AGE: 34 SEX: F EXAM STATUS: REG ER ORD. PHYSICIAN: ESTELA CHINCHILLA MD REASON: VAG BLEEDING IN PREG PROCEDURE: OB LIMITED Limited OB ultrasound greater than 14 weeks 02/19/2020 Clinical History: Second trimester . Vaginal bleeding. Technique: A real-time ultrasound examination of the gravid uterus was performed. Multiple images were obtained. Findings: There is a single living IUP. The fetus is in a breech position. cardiac and somatic activity is seen. The heart rate is 144 beats per minutes. The maternal cervix is closed. It measures 4.0 cm in length. The placenta is anterior. No abnormality is seen. The amniotic fluid volume is within normal limits. Neither maternal ovary is visualized. The following measurements were obtained: BPD 5.0cm 21 weeks 1 days HC 18.6 cm 21weeks 0 days AC 17.2 cm 22weeks 1 days FL 3.6 cm 21 weeks to days The estimated gestational age by ultrasound is 21 weeks 3 days plus or minus a standard deviation of 10 days. The estimated date of delivery by ultrasound is 06/28/2020. Detailed evaluation of anatomy was not performed. No obvious abnormality is seen. Impression: Single living IUP with an estimated gestational age by ultrasound of 21 weeks3 days +/- a standard deviation of 10 days. The estimated date of delivery by ultrasound is06/28/2020. Electronically signed by: Donovan Evans MD (02/19/2020 10:01 AM) [id number] DICTATED AND SIGNED BY: DONOVAN EVANS MD DATE: 02/19/20 1001 CC: ESTELA CHINCHILLA MD; PCP,NO Heart Score: Risk Factors: Risk Factors: DM, Current or recent (<one month) smoker, HTN, HLP, family history of CAD, obesity. Risk Scores: Score 0 - 3: 2.5% MACE over next 6 weeks - Discharge Home Score 4 - 6: 20.3% MACE over next 6 weeks - Admit for Clinical Observation Score 7 - 10: 72.7% MACE over next 6 weeks - Early Invasive Strategies Course & Med Decision Making: Course & Med Decision Making Pertinent Labs and Imaging studies reviewed. (See chart for details) [] 34-year-old female who is approximately 20 weeks presents with vaginal bleeding. Patient currently has no abdominal pain. There is no vaginal bleeding on my exam. Rate ultrasound is reassuring. Patient is Rh+. Discussed the case with her physician, Dr. Brooks who agrees there is no other interventions needed at this time. Patient will follow up with Dr. Brooks as needed. Return precautions given. Patient reassessed at 12:10 AM and has no complaints at this time. [place] Disclaimer: [place] Disclaimer: This electronic medical record was generated, in whole or in part, using a voice recognition dictation system. Departure Departure: Impression: Primary Impression: Vaginal bleeding Additional Impression: Threatened miscarriage Disposition: 01 DC HOME SELF CARE/HOMELESS Condition: STABLE Referrals: PCP,HARSHA (PCP) Dr. Brooks in 2 to 3 days Patient Instructions: Threatened Miscarriage Additional Instructions: EMERGENCY DEPARTMENT GENERAL DISCHARGE INSTRUCTIONS THANK YOU for coming to [facility] Emergency Department (ED) today and trusting us with your care. We trust that you had a positive experience in our Emergency Department. If you wish to speak to the department Management you can contact the emergency department at YOUR FOLLOW UP INSTRUCTIONS ARE FOLLOWS: Do you have a private doctor? If you do not have a private doctor, please ask for a resource list of physicians or clinics that may be able to assist you with follow up care. The Emergency Physician has interpreted your x-rays. The X-ray specialist will also review them. If there is a change in the findings you will be notified in 48 hours when at all possible. A lab test or lab culture may have been done, your results will be reviewed and you will be notified if you need a change in treatment. ADDITIONAL INSTRUCTIONS AND INFORMATION Your care today has been supervised by a physician who is specially trained in emergency care. Many problems require more than one evaluation for a complete diagnosis and treatment. We recommend that you schedule your follow up appointment as recommended to ensure complete treatment of your illness or injury. If you are unable to obtain follow up care and continue to have a problem, or if your condition worsens we recommend that you return to the ED. We are not able to safely determine your condition over the phone nor are we able to give sound medical advice over the phone. For these safety reasons, if you call for medical advice we will ask you to come to the ED for further evaluation If you have any questions regarding these discharge instructions please call the ED at . SAFETY INFORMATION In the interest of safety, wellness, and injury prevention; we encourage you to wear your seatbelt, if you smoke; quit smoking, and we encourage your family to use protective helmet for bicycling and other sporting events that present an increased risk for head injury. IF YOUR SYMPTOMS WORSEN OR NEW SYMPTOMS DEVELOP, OR YOU HAVE CONCERNS ABOUT YOUR CONDITION; OR IF YOUR CONDITION WORSENS WHILE YOU ARE WAITING FOR YOUR FOLLOW UP APPOINTMENT; EITHER CONTACT YOUR PRIMARY CARE DOCTOR, THE PHYSICIAN WHOSE NAME AND NUMBER YOU WERE GIVEN, OR RETURN TO THE ED IMMEDIATELY. ESTELA CHINCHILLA MD Feb 19, 2020 09:16
[2020-02-19 09:39] LABS: BASO % 0 % (0-3); EOS # 0.2 x10^3/uL (0.0-0.7); EOS % 1 % (0-3); HEMATOCRIT 38.2 % (36.0-47.0); HEMOGLOBIN 12.3 g/dL (12.0-15.5); LYMPH # 2.1 x10^3/uL (1.0-4.8); LYMPH % 15 % (24-48); MEAN CORPUSCULAR HEMOGLOBIN 29 pg (25-35); MEAN CORPUSCULAR HGB CONC 32 g/dL (31-37); MEAN CORPUSCULAR VOLUME 89 fL (79-100); MONO # 0.6 x10^3/uL (0.0-1.1); MONO % 4 % (0-9); NEUT # 11.1 x10^3uL (1.8-7.7); NEUT % 79 % (31-73); PLATELET COUNT 278 x10^3/uL (140-400); RED BLOOD COUNT 4.29 x10^6/uL (3.50-5.40); RED CELL DISTRIBUTION WIDTH 13.6 % (11.5-14.5)
[2020-02-19 09:48] LABS: CALCIUM 8.6 mg/dL (8.5-10.1); CREATININE 0.6 mg/dL (0.6-1.0); GFR 114.4; POTASSIUM 3.8 mmol/L (3.5-5.1)
[2020-02-19 09:54] LABS: ALBUMIN 2.8 g/dL (3.4-5.0); ALBUMIN/GLOBULIN RATIO 0.7 (1.0-1.7); TOTAL BILIRUBIN 0.2 mg/dL (0.2-1.0); TOTAL PROTEIN 6.7 g/dL (6.4-8.2)
--- NOTE | 2020-02-19 10:05 | RAD ---
Limited OB ultrasound greater than 14 weeks 02/19/2020 Clinical History: Second trimester . Vaginal bleeding. Technique: A real-time ultrasound examination of the gravid uterus was performed. Multiple images were obtained. Findings: There is a single living IUP. The fetus is in a breech position. cardiac and somatic activity is seen. The heart rate is 144 beats per minutes. The maternal cervix is closed. It measures 4.0 cm in length. The placenta is anterior. No abnormality is seen. The amniotic fluid volume is within normal limits. Neither maternal ovary is visualized. The following measurements were obtained: BPD 5.0cm 21 weeks 1 days HC 18.6 cm 21weeks 0 days AC 17.2 cm 22weeks 1 days FL 3.6 cm 21 weeks to days The estimated gestational age by ultrasound is 21 weeks 3 days plus or minus a standard deviation of 10 days. The estimated date of delivery by ultrasound is 06/28/2020. Detailed evaluation of anatomy was not performed. No obvious abnormality is seen. Impression: Single living IUP with an estimated gestational age by ultrasound of 21 weeks3 days +/- a standard deviation of 10 days. The estimated date of delivery by ultrasound is06/28/2020. Electronically signed by: Donovan Evans MD (02/19/2020 10:01 AM) [id number]
[2020-02-19 10:33] LABS: BILIRUBIN,URINE NEG (NEG); CLARITY,URINE CLEAR; COLOR,URINE YELLOW; GLUCOSE,URINE NEG (NEG); NITRITE,URINE NEG (NEG); RBC,URINE 0 /HPF (0-2); UROBILINOGEN,URINE 0.2 mg/dL (0.2 mg/dL)
[2020-02-19 10:34] LABS: BACTERIA,URINE 0 /HPF (0-FEW); SQUAMOUS EPITHELIAL CELL,UR FEW /LPF; WBC,URINE OCC /HPF (0-4)
[2020-02-19 12:23] VITALS: BP 136/75
[2020-02-20 21:01] LABS: CHLAMYDIA PROBE Negative (Negative)
== END 2020-02-19 12:19 | disposition home or self-care (01) ==
LOC: ER 08:39
DX: O20.0 Threatened abortion (principal); O16.2 Unspecified maternal hypertension, second trimester; O99.332 Smoking (tobacco) complicating pregnancy, second trimester; Z3A.21 21 weeks gestation of pregnancy; Z88.8 Allergy status to other drugs, medicaments and biological substances
CPT/HCPCS: 36415; 76815; 80053; 81001; 84702; 85025; 86901; 87491; 87591; 99284; Q0111